=== PATIENT | female | born 1945 | race Hispanic/Latino ===

== ENCOUNTER 2017-11-16 09:34 | Day surgery (SDC) | payer MEDICARE ==
[2017-11-08 11:44] VITALS: BMI 22.2
[2017-11-16] MEDS ORDERED: Sodium Chloride 0.9% 1,000 ML IV SCH ×2 (11:15→13:00)
[2017-11-16] MEDS ORDERED: Propofol 10 mg/ml Inj (20 ML) ONE (11:32)
[2017-11-16] MEDS ORDERED: NS IV ONE (12:45)
[2017-11-16] MEDS ORDERED: HETASTARCH 6% IV ONE (12:45)
[2017-11-16 13:18] VITALS: O2SAT 100
[2017-11-16 13:59] VITALS: BP 119/64; PULSE 67; RESP 14; TEMP 97.3
== END 2017-11-16 15:03 | disposition home or self-care (01) ==
LOC: ENDO 09:34
PROVIDERS: ATTEND Internal Medicine Gastroenterology
DX: K29.50 Unspecified chronic gastritis without bleeding (principal); D12.2 Benign neoplasm of ascending colon; D12.0 Benign neoplasm of cecum; K44.9 Diaphragmatic hernia without obstruction or gangrene; K29.80 Duodenitis without bleeding; K31.9 Disease of stomach and duodenum, unspecified; K57.30 Diverticulosis of large intestine without perforation or abscess without bleeding; K64.8 Other hemorrhoids
CPT/HCPCS: 43239; 45380; 45381; 45385; 88305; 88342; J2001; J2704; J7040 ×2

== ENCOUNTER 2018-01-04 09:58 | Day surgery (SDC) | payer MEDICARE ==
[2017-11-08 11:44] VITALS: BMI 22.2
[2018-01-04 11:49] LABS: BASO # 0.01 K/mm3 (0.0-2.0); BASO % 0.2 % (0.0-3.0); EOS # 0.1 (0.0-0.7); EOS % 2.3 % (1.5-5.0); GRAN # 2.6 (1.4-6.5); GRAN % 59.9 % (50.0-68.0); HEMOGLOBIN 11.1 g/dL (12.0-16.0); MEAN CELL VOLUME 84.8 fl (80.0-105.0); MEAN CORPUSCULAR HEMOGLOBIN 28.6 pg (25.0-35.0); MEAN CORPUSCULAR HGB CONC 33.7 g/dl (31.0-37.0); MEAN PLATELET VOLUME 9.3 fl (7.0-11.0); MONO # 0.6 (0.1-0.6); MONO % 13.6 % (1.0-6.0); RBC 3.88 10^6/uL (3.5-6.1); WHITE BLOOD COUNT 4.3 10^3/ul (4.5-11.0)
[2018-01-04 11:59] LABS: ALB/GLOB RATIO 1.4 (1.1-1.8); ALBUMIN 3.8 g/dL (3.0-4.8); ALT/SGPT 48 U/L (7-56); AMYLASE 63 U/L (35-125); AST/SGOT 69 U/L (14-36); BLOOD UREA NITROGEN 21 mg/dL (7-21); CALCIUM 9.2 mg/dL (8.4-10.5); GAMMA GLUTAMYL TRANSPEPTIDASE 62 U/L (8-78); GFR AFRICAN-AMERICAN > 60; GFR NON-AFRICAN AMERICAN > 60; LIPASE 77 U/L (23-300)
[2018-01-04 12:00] LABS: INR 1.05 (0.93-1.08); PARTIAL THROMBOPLASTIN TIME 29.3 Seconds (25.1-36.5); PROTHROMBIN TIME 12.1 SECONDS (9.4-12.5)
[2018-01-04] MEDS ORDERED: Propofol 10 mg/ml Inj (20 ML) ONE ×2 (12:15→13:13)
[2018-01-04] MEDS ORDERED: Midazolam 2 MG/2 ML VIAL ONE (12:16)
[2018-01-04] MEDS ORDERED: Sodium Chloride 0.9% 1,000 ML IV SCH (14:00)
[2018-01-04 15:40] VITALS: BP 130/57; PULSE 42; RESP 16; TEMP 97.7; O2SAT 97
== END 2018-01-04 17:45 | disposition home or self-care (01) ==
LOC: ENDO 09:58
PROVIDERS: ATTEND Internal Medicine Gastroenterology
DX: K31.9 Disease of stomach and duodenum, unspecified (principal)
CPT/HCPCS: 36415; 43242; 80053; 82150; 82977; 83690; 85025; 85610; 85730; 88305; 88342; J2001; J2250; J2704; J3010; J7040 ×2; J7120

== ENCOUNTER 2018-02-01 10:11 | Day surgery (SDC) | payer MEDICARE ==
[2017-11-08 11:44] VITALS: BMI 22.2
[2018-02-01] MEDS ORDERED: Propofol 10 mg/ml Inj (20 ML) ONE ×4 (13:40→15:00)
[2018-02-01] MEDS ORDERED: Lidocaine 1% Inj (20ml) ONE (13:41)
[2018-02-01] MEDS ORDERED: Sodium Chloride 0.9% 1,000 ML IV SCH (15:30)
[2018-02-01 16:15] VITALS: BP 133/67; PULSE 59; RESP 18; TEMP 07.9; O2SAT 93
== END 2018-02-01 17:22 | disposition home or self-care (01) ==
LOC: ENDO 10:11
PROVIDERS: ATTEND Internal Medicine Gastroenterology
DX: D12.0 Benign neoplasm of cecum (principal); K63.5 Polyp of colon; K57.30 Diverticulosis of large intestine without perforation or abscess without bleeding; K64.8 Other hemorrhoids; I10 Essential (primary) hypertension
CPT/HCPCS: 45380; 45381; 45385; 88305; J2704; J3010; J7040 ×2